=== PATIENT | female | born 1945 | race Caucasian/White ===

== ENCOUNTER 2017-11-02 13:02 | Emergency (ER) | payer MEDICARE, SELFPAY ==
[2017-11-02 13:08] VITALS: BP 143/70; PULSE 110; RESP 24; TEMP 36.7; O2SAT 90; BMI 25.0
--- NOTE | 2017-11-02 13:41 | XR_ITS ---
XR chest 2V HISTORY: ITS.REASON: Decreased apetite, confusion, baseline ORDERING PHYSICIAN: Christy Raymond MD PATIENT AGE: 72 years COMPARISON: 02/29/2008 FINDINGS: The cardiomediastinal silhouette and pulmonary vascularity are within normal limits. COPD. Patchy density is present in both lower lobes and may be due to areas of atelectasis or infiltrate. There is blunting of posterior costophrenic sulcus suggesting small effusion which may be on the right. Mild degenerative changes thoracic spine. IMPRESSION: Atelectasis or infiltrate in the lung bases with small right effusion with COPD
--- NOTE | 2017-11-02 13:45 | CT_ITS ---
CT head/brain wo con HISTORY: Altered mental status, altered level of consciousness, confusion ITS.REASON: CONFUSION ORDERING PHYSICIAN: Christy Raymond MD PATIENT AGE: 72 years COMPARISON: None TECHNIQUE: Axial images obtained without contrast. Brain and bone windows reviewed. FINDINGS: No midline shift, mass effect, intracranial hemorrhage, hydrocephalus, or extra-axial fluid collection is evident. There is atrophy with chronic ischemic gliotic change The calvarium has an unremarkable appearance. No mastoid effusion. No sinus air-fluid levels.. IMPRESSION: No acute intracranial findings. Mild atrophy with chronic ischemic gliotic change.
[2017-11-02 14:04] VITALS: BP 122/73; PULSE 109; RESP 21; O2SAT 92
--- NOTE | 2017-11-02 14:10 | HMH.EDGENADL ---
ED Disposition Clinical Impression: UTI (urinary tract infection), Cough, Neurologic complaint, functional Disposition: Home, Self-Care Condition on Discharge: Good Additional Instructions: Rx Bactrim, see your family doctor in three to five days for recheck. Prescriptions: Sulfamethoxazole/Trimethoprim [Bactrim DS tablet] 1 each PO BID #14 tab Referrals: Maya Garcia MD [Primary Care Provider] - - Critical Care Critical Care Time: No Attestation: On 11/02/17, the high probability of a clinically significant, sudden or life threatening deterioration of the following system(s) required my full and direct attention, intervention and personal management. The time I documented below is in addition to time spent performing reported procedures but includes the following listed in this critical care notation. Medical Decision Making Vital Signs: 11/02/17 13:08 11/02/17 14:04 11/02/17 15:00 Temperature 98.0 F Temperature Source Oral Pulse Rate [Right Radial] 110 H 109 H 82 Respiratory Rate 24 21 22 Blood Pressure [Right Arm] 143/70 122/73 128/77 Blood Pressure Mean [Right Arm] 94 89 94 Blood Pressure Source [Right Arm] Automatic Cuff Automatic Cuff Automatic Cuff Blood Pressure Position [Right Arm] Sitting Sitting Sitting 02 Sat by Pulse Oximetry 90 L 92 L 99 Oxygen Delivery Method Room Air Room Air Room Air - Lab Data Lab results reviewed: Yes: I reviewed the patient's lab results. Lab Results 11/02/17 13:41: Urine Color Yellow, Urine Appearance Cloudy, Urine pH 6.0, Ur Specific [place] 1.025, Urine Protein 1+, Urine Glucose (UA) Negative, Urine Ketones 3+, Urine Blood Trace-l, Urine Nitrate Negative, Urine Bilirubin 2+ A, Urine Urobilinogen 0.2, Ur Leukocyte Esterase 2+ A, Urine RBC 5-10, Urine WBC 10-20, Ur Squamous Epith Cells 5-10, Amorphous Sediment Trace, Urine Bacteria 1+ 11/02/17 14:50: WBC 11.2 H, RBC 4.59, Hgb 14.0, Hct 43.4, MCV 94.7, MCH 30.6, MCHC 32.3, RDW 12.3, Plt Count 226, MPV 7.9, Neut % (Auto) 83.0 H, Lymph % (Auto) 10.4, [place] % (Auto) 5.6, Eos % (Auto) 0.7, Baso % (Auto) 0.3, Neut # (Auto) 9.3 H, Lymph # (Auto) 1.2, [place] # (Auto) 0.6, Eos # (Auto) 0.1, Baso # (Auto) 0.0 11/02/17 14:50: Sodium 140, Potassium 4.4, Chloride 102, Carbon Dioxide 30, Anion Gap 12.4, BUN 17, Creatinine 0.96, Estimated Creat Clear 55, Estimated GFR 57 L, Est GFR ( Amer) 69, Glucose 109 H, Calcium 9.1, Total Bilirubin 0.5, AST 27, ALT 30, Alkaline Phosphatase 77, Total Creatine Kinase 37, CK-MB (CK-2) 0.8, CK-MB (CK-2) Rel Index 2.2, Troponin I < 0.02, Total Protein 7.3, Albumin 3.5, Globulin 3.8 H, Albumin/Globulin Ratio 0.9 L, TSH 1.04 Result diagrams: 11/02/17 14:50 11/02/17 14:50 Orders (Tests/Meds): ORDERS Category Date Time Status Urine Culture Stat Micro 11/02/17 13:41 Received - Radiology Data #1 Image(s): Chest, Shoulder Image Reviewed: Yes I reviewed the patient's radiology results Preliminary Findings: Normal/NAD, No Infiltrates Seen, Normal Lung Inflation Ciar[place], Normal Heart Size possible atelectasis at base - CT Data CT Scan: Head Time Received: 15:[address] Reviewed: Yes: I have reviewed the patient's CT results Preliminary Findings: Normal/NAD (Feet, negative acute.) - ECG Data Tracing #1 I reviewed this ECG and interpreted as documented below: His tachycardia rate of 109. Negative ectopy. No ischemic changes. ECG initial impression date: 11/02/17 ECG initial impression time: 14:00 ECG normal with no acute: arrhythmias, ischemia, conduction abnormalities, chamber hypertrophy - Luke Inquiry Pt receiving controlled substance: No General Adult HPI - General Chief complaint: Anxiety Stated complaint: can't eat Time Seen by Provider: 11/02/17 13:50 Mode of Arrival: Ambulatory Limitations: No Limitations Description of Symptoms (Recalled from ER Triage Doc. by RN): Patient presents today stating, I can't eat, I can't sleep. I keep forgetting things like wh
--- NOTE | 2017-11-02 14:16 | ED_ITS ---
ED Disposition Clinical Impression: UTI (urinary tract infection), Cough, Neurologic complaint, functional Disposition: Home, Self-Care Condition on Discharge: Good Additional Instructions: Rx Bactrim, see your family doctor in three to five days for recheck. Prescriptions: Sulfamethoxazole/Trimethoprim [Bactrim DS tablet] 1 each PO BID #14 tab Referrals: Maya Garcia MD [Primary Care Provider] - - Critical Care Critical Care Time: No Attestation: On 11/02/17, the high probability of a clinically significant, sudden or life threatening deterioration of the following system(s) required my full and direct attention, intervention and personal management. The time I documented below is in addition to time spent performing reported procedures but includes the following listed in this critical care notation. Medical Decision Making Vital Signs: 11/02/17 13:08 11/02/17 14:04 11/02/17 15:00 Temperature 98.0 F Temperature Source Oral Pulse Rate [Right Radial] 110 H 109 H 82 Respiratory Rate 24 21 22 Blood Pressure [Right Arm] 143/70 122/73 128/77 Blood Pressure Mean [Right Arm] 94 89 94 Blood Pressure Source [Right Arm] Automatic Cuff Automatic Cuff Automatic Cuff Blood Pressure Position [Right Arm] Sitting Sitting Sitting 02 Sat by Pulse Oximetry 90 L 92 L 99 Oxygen Delivery Method Room Air Room Air Room Air - Lab Data Lab results reviewed: Yes: I reviewed the patient's lab results. Lab Results 11/02/17 13:41: Urine Color Yellow, Urine Appearance Cloudy, Urine pH 6.0, Ur Specific [place] 1.025, Urine Protein 1+, Urine Glucose (UA) Negative, Urine Ketones 3+, Urine Blood Trace-l, Urine Nitrate Negative, Urine Bilirubin 2+ A, Urine Urobilinogen 0.2, Ur Leukocyte Esterase 2+ A, Urine RBC 5-10, Urine WBC 10 -20, Ur Squamous Epith Cells 5-10, Amorphous Sediment Trace, Urine Bacteria 1+ 11/02/17 14:50: WBC 11.2 H, RBC 4.59, Hgb 14.0, Hct 43.4, MCV 94.7, MCH 30.6, MCHC 32.3, RDW 12.3, Plt Count 226, MPV 7.9, Neut % (Auto) 83.0 H, Lymph % (Auto ) 10.4, [place] % (Auto) 5.6, Eos % (Auto) 0.7, Baso % (Auto) 0.3, Neut # (Auto) 9.3 H, Lymph # (Auto) 1.2, [place] # (Auto) 0.6, Eos # (Auto) 0.1, Baso # (Auto) 0.0 11/02/17 14:50: Sodium 140, Potassium 4.4, Chloride 102, Carbon Dioxide 30, Anion Gap 12.4, BUN 17, Creatinine 0.96, Estimated Creat Clear 55, Estimated GFR 57 L, Est GFR ( Amer) 69, Glucose 109 H, Calcium 9.1, Total Bilirubin 0.5, AST 27, ALT 30, Alkaline Phosphatase 77, Total Creatine Kinase 37 , CK-MB (CK-2) 0.8, CK-MB (CK-2) Rel Index 2.2, Troponin I < 0.02, Total Protein 7.3, Albumin 3.5, Globulin 3.8 H, Albumin/Globulin Ratio 0.9 L, TSH 1.04 Result diagrams: 11/02/17 14:50 11/02/17 14:50 Orders (Tests/Meds): ORDERS Category Date Time Status Urine Culture Stat Micro 11/02/17 13:41 Received - Radiology Data #1 Image(s): Chest, Shoulder Image Reviewed: Yes I reviewed the patient's radiology results Preliminary Findings: Normal/NAD, No Infiltrates Seen, Normal Lung Inflation Ciaran , Normal Heart Size possible atelectasis at base - CT Data CT Scan: Head Time Received: 15:[address] Reviewed: Yes: I have reviewed the patient's CT results Preliminary Findings: Normal/NAD (Feet, negative acute.) - ECG Data Tracing #1 I reviewed this ECG and interpreted as documented below: His tachycardia rate of 109. Negative ectopy. No ischemic changes. ECG initial impression date: 11/02/17 ECG initial impress
[2017-11-02 14:58] LABS: Basophils % 0.3 % (0.1-2.0); Eosinophils # 0.1 K/mm3 (0.0-0.4); Eosinophils % 0.7 % (0.1-12.0); Hematocrit 43.4 % (37.0-47.0); Lymphocytes # 1.2 K/mm3 (0.7-4.5); Lymphocytes % 10.4 K/mm3 (10-50); Mean Corpuscular HGB Conc 32.3 g/dL (31.8-35.4); Mean Corpuscular Hemoglobin 30.6 pg (27.0-31.2); Mean Corpuscular Volume 94.7 fl (81-99); Mean Platelet Volume 7.9 fl (7.4-10.4); Monocytes # 0.6 K/mm3 (0.1-1.0); Monocytes % 5.6 % (1.7-9.3); Neutrophils # 9.3 K/mm3 (1.8-7.8); Platelet Count 226 K/mm3 (142-424); Red Blood Count 4.59 M/mm3 (4.20-5.40); Red Cell Distribution Width 12.3 % (11.5-17.5); White Blood Count 11.2 K/mm3 (4.8-10.8)
[2017-11-02 15:00] VITALS: BP 128/77; PULSE 82; RESP 22; O2SAT 99
[2017-11-02 15:25] LABS: Alanine Aminotransferase 30 U/L (12-78); Albumin Level 3.5 gm/dL (3.4-5.0); Albumin/Globulin Ratio 0.9 (1.1-1.8); Alkaline Phosphatase 77 U/L (46-116); Anion Gap 12.4 mEq/L (5-15); Aspartate Amino Transferase 27 U/L (15-37); Bilirubin,Total 0.5 mg/dL (0.2-1.0); Blood Urea Nitrogen 17 mg/dL (7-18); CKMB Relative Index 2.2 U/L (0-4.0); Calcium 9.1 mg/dL (8.5-10.1); Carbon Dioxide 30 mmol/L (21.0-32.0); Chloride 102 mmol/L (98-107); Creatine Kinase 37 U/L (26-192); Creatine Kinase MB 0.8 mg/ml (0.0-3.6); Creatinine Clearance Estimated 55 mL/min (0-300); Creatinine,Serum 0.96 mg/dL (0.55-1.02); Estimated Glomerular Filt Rate 57 ml/min (>60); GFR (African American) 69 ML/MIN (>60); Globulin 3.8 gm/dl (1.3-3.2); Glucose 109 mg/dL (74-106); Potassium 4.4 mmoL/L (3.5-5.1); Sodium 140 mmol/L (136-145); Thyroid Stimulating Hormone 1.04 uIU/ml (0.358-3.740); Total Protein,Serum 7.3 gm/dL (6.4-8.2); Troponin I < 0.02 ng/ml (0.00-0.06)
[2017-11-02 15:30] LABS: Microscopic, Urine URINE MICROSCOPIC (MICROSCOPIC)
[2017-11-02 15:35] LABS: Appearance,Urine CLOUDY (Clear); Blood, Urine TRACE-L (Negative); Color,Urine YELLOW (Yellow); Glucose,Urine (UA) Negative (Negative); Ketones,Urine 3+ (Negative); Leukocyte Esterase,Urine 2+ (Negative); Nitrate,Urine Negative (Negative); Protein,Urine 1+ (Negative); Specific Gravity, Urine 1.025 (1.005-1.030); Urobilinogen,Urine 0.2 EU/dl (0.2)
[2017-11-02 15:48] LABS: Bilirubin,Urine 2+ (Negative)
[2017-11-02 15:57] LABS: Amorphous Sediment,Urine Trace /lpf; Bacteria,Urine 1+ /lpf
[2017-11-02 16:11] VITALS: BP 135/90; PULSE 103; RESP 20; TEMP 36.7; O2SAT 91
== END 2017-11-02 16:18 | disposition home or self-care (01) ==
PROVIDERS: Emergency Provider Emergency Medicine; Family Provider Family Medicine; PCP Family Medicine
DX: R68.89 Other general symptoms and signs (principal); N39.0 Urinary tract infection, site not specified; R05 Cough; Z79.899 Other long term (current) drug therapy; Z87.891 Personal history of nicotine dependence
CPT/HCPCS: 70450; 71046; 80053; 81001; 82550; 82553; 84443; 84484; 85025; 87086; 93005; 93041; 99284

== ENCOUNTER → 2019-04-11 09:54 | Outpatient (CLI) | payer MEDICARE, SELFPAY ==
--- NOTE | 2019-04-11 10:01 | XR_ITS ---
XR chest 2V HISTORY: ITS.REASON: COPD cough, smoker ORDERING PHYSICIAN: Maya Garcia MD PATIENT AGE: 73 years COMPARISON: 11/02/2017 FINDINGS: Normal heart size. There is hyperinflation with attenuation of the peripheral pulmonary vessels consistent with COPD. There are chronic changes in the lower lobes within the lingula and right middle lobe. No lobar consolidation or collapse. There is mild thoracic kyphosis unchanged. IMPRESSION: COPD with chronic changes
== END ==
PROVIDERS: PCP Family Medicine; Visit Provider Family Medicine
DX: J44.9 Chronic obstructive pulmonary disease, unspecified (principal)
CPT/HCPCS: 71046

== ENCOUNTER → 2021-05-06 13:42 | Outpatient (CLI) | payer MEDICARE, SELFPAY ==
--- NOTE | 2021-05-06 13:52 | XR_ITS ---
PROCEDURE: XR HIP RT 2-3V W/PELVIS CLINICAL INDICATION: RT HIP PAIN COMPARISON: CR HIP2R HIP-2 VIEWS-RT from 01/15/2013 CR HIP2R HIP-2 VIEWS-RT from 01/30/2013 CR HIP2R HIP-2 VIEWS-RT from 04/13/2013 CR HIP2R HIP-2 VIEWS-RT from 09/18/2013 FINDINGS: Total right hip prosthesis is present. There is good position. No acute fracture or dislocation. Well-circumscribed calcific density is present superior to the right iliac crest and may be due to injection granuloma. IMPRESSION: Right hip prosthesis in place. No acute finding Dictated by: Guille Ga MD 05/06/2021 14:59 Guille Ga MD in OV 05/06/2021 14:59
== END ==
PROVIDERS: PCP Family Medicine; Visit Provider Family Medicine
DX: M25.551 Pain in right hip (principal)
CPT/HCPCS: 73502

== ENCOUNTER 2021-11-11 10:06 | Inpatient (IN) | payer MEDICARE, SELFPAY ==
[2021-11-11] VITALS (11 sets, daily range): BP systolic 111–165; BP diastolic 54–89; PULSE 78–106; RESP 16–28; TEMP 36.6–37.3; O2SAT 3–99; BMI 34.5; BMI 31.1; BMI 19.8
--- NOTE | 2021-11-11 10:09 | XR_ITS ---
FINAL REPORT CLINICAL HISTORY: right hip pain FINDINGS: Right hip with pelvis. There has been right hip arthroplasty. There is no acute fracture or dislocation. There are mild degenerative changes of the left hip. There are no soft tissue abnormalities. IMPRESSION: Postoperative and degenerative changes. Reviewed, Interpreted and Dictated by Lior Collado III, MD Transcribed by Nelson Tirado Authenticated by Lior Collado III, MD on 11/11/2021 12:27:13 PM [facility]
--- NOTE | 2021-11-11 10:09 | XR_ITS ---
FINAL REPORT CLINICAL HISTORY: cough COMPARISON: November 02, 2017 FINDINGS: The heart size is normal. The mediastinum is normal. The lungs are hyperinflated consistent with COPD. There are mild bibasilar opacities. There are no pleural effusions. There is no pneumothorax. There is no osseous abnormality. IMPRESSION: Mild bibasilar opacities could represent atelectasis or scarring. Reviewed, Interpreted and Dictated by Lior Collado III, MD Transcribed by Nelson Tirado Authenticated by Lior Collado III, MD on 11/11/2021 12:27:16 PM [facility]
--- NOTE | 2021-11-11 10:12 | HMH.EDGENADL ---
ED Disposition Clinical Impression: COVID-19, Hypoxemia Disposition: Admitted as Observation Condition on Discharge: Good Referrals: Maya Garcia MD [Primary Care Provider] - - Critical Care Critical Care Time: No Attestation: On , the high probability of a clinically significant, sudden or life threatening deterioration of the following system(s) required my full and direct attention, intervention and personal management. The time I documented below is in addition to time spent performing reported procedures but includes the following listed in this critical care notation. Medical Decision Making - Medical Records Medical records reviewed: Yes: I reviewed the patient's medical records. - Luke Inquiry Pt receiving controlled substance: No - Lab Data Lab Results 11/11/21 10:10: WBC 7.7, RBC 4.37, Hgb 13.6, Hct 43.6, MCV 99.8 H, MCH 31.1, MCHC 31.2 L, RDW 13.2, Plt Count 216, MPV 9.3, Neut % (Auto) 77.4, Lymph % (Auto) 11.5, [place] % (Auto) 9.0, Eos % (Auto) 0.5, Baso % (Auto) 1.6, Neut # (Auto) 5.9, Lymph # (Auto) 0.9, [place] # (Auto) 0.7, Eos # (Auto) 0.0, Baso # (Auto) 0.1 11/11/21 10:10: Sodium 134 L, Potassium 4.5, Chloride 98, Carbon Dioxide 28, Anion Gap 12.5, BUN 19 H, Creatinine 0.80, Estimated Creat Clear 59, Estimated GFR 70, Est GFR ( Amer) 85, Glucose 94, Calcium 8.4, Total Bilirubin 0.4, AST 58 H, ALT 24, Alkaline Phosphatase 76, Total Protein 6.7, Albumin 3.8, Globulin 2.9, Albumin/Globulin Ratio 1.3 11/11/21 10:25: SARS-CoV-2 (PCR) Detected A, Influenza A Untype (PCR) Not detected, Influenza Type B (PCR) Not detected 11/11/21 10:43: Lactate 0.7 Result diagrams: 11/11/21 10:10 11/11/21 10:10 Orders (Tests/Meds): ED MEDICATIONS Discontinued Medications Generic Name Dose Route Start Last Admin Trade Name Freq PRN Reason Stop Dose Admin Dexamethasone Sodium Phosphate 8 mg 11/11/21 11:24 11/11/21 11:37 Dexamethasone 4mg/Ml 1ml Vial IV 11/11/21 11:25 8 mg ONCE ONE Administration Sodium Chloride 1,000 mls @ 999 mls/hr 11/11/21 10:15 11/11/21 10:31 Sod Chlor 0.9% 1000ml Bag IV 11/11/21 11:15 999 mls/hr .Q1H1M KALINA Administration Azithromycin 500 mg/ Sodium 250 mls @ 250 mls/hr 11/11/21 11:30 11/11/21 11:37 Chloride IV 11/11/21 11:31 250 mls/hr ONCE ONE Administration ORDERS Category Date Time Status Urinalysis and Microscopic Stat Lab 11/11/21 10:09 Ordered Blood Culture Stat Micro 11/11/21 10:43 Received EKG Request [ECG Request by /Nse] Stat Y 11/11/21 10:14 Ordered Medical Decision Narrative: ekg by me sinus 103, la, no st elev General Adult HPI - General Chief complaint: PAIN Stated complaint: pain Time Seen by Provider: 11/11/21 10:12 - History of Present Illness HPI narrative: h/o dementi family call c/o cough and congestion and rt hip pain gradual worsening ems reports o2 sat 80's ra Onset (ago): day(s) Radiation: non-radiation Severity: moderate Consistency: constant Associated symptoms: cough, shortness of breath, weakness - Related Data Home Medications Medication Instructions Recorded Confirmed lisinopriL [Lisinopril 10mg Tab] 10 mg PO DAILY 11/02/17 11/02/17 Allergies Allergy/AdvReac Type Severity Reaction Status Date / Time No Known Allergies Allergy Verified 11/02/17 13:19 [facility] History - Hepatitis A Screen Attestation statement:: This patient has been screened for Hepatitis A risk factors. - Social History Smoking Status: Former smoker Alcohol Intake: never ROS Obtained: Yes All systems reviewed & no additional complaints Physical Exam - General General appearance: alert, in no apparent distress - Head Head exam: atraumatic, normocephalic - Eye Eye exam: Present: normal appearance, PERRL, EOMI - ENT ENT exam: Present: normal exam, normal oropharynx, mucous membranes moist - Neck Neck exam: Present: normal inspection, full ROM, trachea midline - Chest Chest inspe
--- NOTE | 2021-11-11 10:14 | ECG_ITS ---
APPROVED REPORT Exam: Resting ECG HR:103 bpm ECG Measurements Heart Rate 103 AXES NE 148 P 74 QRSd 93 QRS -65 QT 350 T 66 QTc 410 Conclusion SINUS TACHYCARDIA LEFT AXIS DEVIATION [QRS AXIS < -30] INCOMPLETE RIGHT BUNDLE BRANCH BLOCK Old late r wave progression ABNORMAL ECG UNCONFIRMED REPORT Electronically signed by : Tommy Martinez MD 11/12/2021 18:51:48
[2021-11-11 10:24] LABS: Basophils # 0.1 K/mm3 (0-0.2); Basophils % 1.6 % (0.1-2.0); Eosinophils % 0.5 % (0.1-12.0); Hematocrit 43.6 % (37.0-47.0); Hemoglobin 13.6 g/dL (12.2-16.2); Lymphocytes # 0.9 K/mm3 (0.7-4.5); Lymphocytes % 11.5 % (10-50); Mean Corpuscular HGB Conc 31.2 g/dL (31.8-35.4); Mean Corpuscular Hemoglobin 31.1 pg (27.0-31.2); Mean Corpuscular Volume 99.8 fl (81-99); Mean Platelet Volume 9.3 fl (7.4-10.4); Monocytes # 0.7 K/mm3 (0.1-1.0); Neutrophils # 5.9 K/mm3 (1.8-7.8); Neutrophils % 77.4 % (37.0-80.0); Platelet Count 216 K/mm3 (142-424); Red Blood Count 4.37 M/mm3 (4.20-5.40); Red Cell Distribution Width 13.2 % (11.5-17.5); White Blood Count 7.7 K/mm3 (4.8-10.8)
[2021-11-11 10:32] LABS: Chloride 98 mmol/L (98-107); Potassium 4.5 mmoL/L (3.5-5.1); Sodium 134 mmol/L (136-145)
[2021-11-11 10:35] LABS: Alanine Aminotransferase 24 U/L (12-78); Albumin Level 3.8 g/dl (3.5-5.0); Albumin/Globulin Ratio 1.3 (1.1-1.8); Alkaline Phosphatase 76 U/L (38-126); Anion Gap 12.5 mEq/L (5-15); Aspartate Amino Transferase 58 U/L (14-36); Bilirubin,Total 0.4 mg/dl (0.2-1.3); Blood Urea Nitrogen 19 mg/dl (7-17); Carbon Dioxide 28 mmol/L (22.0-30.0); Creatinine Clearance Estimated 59 mL/min (50-200); Estimated Glomerular Filt Rate 70 ml/min (>60); GFR (African American) 85 ML/MIN (>60); Globulin 2.9 g/dL (1.3-3.2); Total Protein,Serum 6.7 g/dl (6.3-8.2)
[2021-11-11 10:36] LABS: Calcium 8.4 mg/dl (8.4-10.2); Glucose 94 mg/dl (74-100)
[2021-11-11 10:39] LABS: Influenza A, PCR Not Detected (NotDetected); Influenza B, PCR Not Detected (NotDetected)
--- NOTE | 2021-11-11 11:17 | PC.NURSE ---
O2 REMOVED PER MD O2 SATS DROPPED TO 84% O2 REAPPLIED O2 SATS BACK UP TO 95%
[2021-11-11 11:18] LABS: Coronavirus 19, PCR Detected (NotDetected)
[2021-11-11 11:34] LABS: Lactic Acid 0.7 mmol/L (0.7-2.1)
--- NOTE | 2021-11-11 12:00 | PC.NURSE ---
pt resting in bed offers no c/o at present
--- NOTE | 2021-11-11 12:17 | PC.NURSE ---
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
--- NOTE | 2021-11-11 13:04 | PC.NURSE ---
used external med history for patient med rec. will go over with patient on admission
--- NOTE | 2021-11-11 13:15 | HMH.PHAINT ---
MEDICATION RECONCILIATION COMPLETED ON PATIENT USING EXTERNAL FILL HISTORY FROM PHARMACY. -SYLVIA LUNDBERG, EDILD
[2021-11-11 13:19] LABS: Microscopic, Urine URINE MICROSCOPIC (MICROSCOPIC)
[2021-11-11 13:58] LABS: Appearance,Urine CLEAR (Clear); Blood, Urine TRACE-I (Negative); Color,Urine YELLOW (Yellow); Glucose,Urine (UA) Negative (Negative); Ketones,Urine 2+ (Negative); Leukocyte Esterase,Urine 2+ (Negative); Nitrate,Urine Negative (Negative); Protein,Urine Negative (Negative); Specific Gravity, Urine >= 1.030 (1.005-1.030); Urobilinogen,Urine 0.2 EU/dl (0.2)
[2021-11-11 14:17] LABS: Bilirubin,Urine 1+ (Negative); Squamous Epithelial Cell,Urine Occasional #/hpf (0-5)
[2021-11-11 14:18] LABS: Bacteria,Urine 2+ /lpf
--- NOTE | 2021-11-11 14:49 | HMH.PHAVTE ---
[facility] Pharmacy VTE Monitoring - Patient Demographics Admission date: 11/11/21 Report Date: 11/11/21 Time: 14:49 Allergies/Adverse Reactions: Patient Allergies No Known Allergies Allergy (Verified 11/02/17 13:19) Height: 1.57 m Weight: 77.111 kg Patient Problems: Current Active Problems COVID-19 (Acute) Hypoxemia (Acute) - VTE Risk Labs: VTE Related Lab Results Hgb 13.6 g/dL (12.2-16.2) 11/11/21 10:10 Hct 43.6 % (37.0-47.0) 11/11/21 10:10 Plt Count 216 K/mm3 (142-424) 11/11/21 10:10 BUN 19 mg/dl (7-17) H 11/11/21 10:10 Creatinine 0.80 mg/dl (0.52-1.04) 11/11/21 10:10 Estimated Creat Clear 59 mL/min (50-200) 11/11/21 10:10 - Prophylaxis VTE Prophylaxis Ordered?: Yes Types of VTE Prophylaxis: TEDS Knee High, Pharmacological Location of Applied Device: Bilateral Lower Extremeties Pharmacologic Type: Enoxaparin
--- NOTE | 2021-11-11 18:08 | HMH.HP ---
*Admission Date: 11/11/21 *Chief complaint: cough, hip pain *History of present illness: 76 year old female present to ER via EMS with cough, chest congestion, and right hip pain. Eval in ther ER revealed hypoxian and positive covid19 test. Hip imaging unremarkable. Patient has been vaccinated with J&J with no booster. She has been a smoker for 60 years. No oxygen use at home. Patient is unclear on length of illness. [facility] History I have reviewed the patient's past medical history: Yes Medical History: Reports:: Chronic Obstructive Pulmonary Disease (COPD), Dementia, Hypertension Denies:: Diabetes Mellitus Type 1, Diabetes Mellitus Type 2 *Have you ever received a pneumonia vaccine?: No *Have you received a flu vaccine this season?: No - *Social History Smoking Status: Current every day smoker Tobacco Type: cigarettes # Packs/Day (cigarettes): 1 Alcohol Intake: never *Occupational Status:: retired Housing: house Household Members: family *Travel in the last 8 weeks: None Family Hx:: Unable to obtain Review of Systems - Review of Systems Review of systems:: pertinent systems reviewed and negative unless documented below Meds Home Medications Medication Instructions Recorded Confirmed Type lisinopriL [Lisinopril 10mg Tab] 10 mg PO DAILY 11/02/17 11/11/21 History Doxepin HCl [Sinequan 25mg capsule] 25 mg PO HS 11/11/21 11/11/21 History Memantine HCl [Memantine 10mg 10 mg PO BID 11/11/21 11/11/21 History Tablet] Temazepam [Restoril 30mg Capsule] 30 mg PO HSP PRN 11/11/21 11/11/21 History Allergies Allergy/AdvReac Type Severity Reaction Status Date / Time No Known Allergies Allergy Verified 11/02/17 13:19 Exam Vital signs and Labs for Last 24 Hours: Temp Pulse Resp BP Pulse Ox 99.2 F 103 H 26 H 111/86 3 L 11/11/21 16:00 11/11/21 16:00 11/11/21 16:00 11/11/21 16:00 11/11/21 16:00 Laboratory Results - last 24 hr 11/11/21 10:10: WBC 7.7, RBC 4.37, Hgb 13.6, Hct 43.6, MCV 99.8 H, MCH 31.1, MCHC 31.2 L, RDW 13.2, Plt Count 216, MPV 9.3, Neut % (Auto) 77.4, Lymph % (Auto) 11.5, [place] % (Auto) 9.0, Eos % (Auto) 0.5, Baso % (Auto) 1.6, Neut # (Auto) 5.9, Lymph # (Auto) 0.9, [place] # (Auto) 0.7, Eos # (Auto) 0.0, Baso # (Auto) 0.1 11/11/21 10:10: Sodium 134 L, Potassium 4.5, Chloride 98, Carbon Dioxide 28, Anion Gap 12.5, BUN 19 H, Creatinine 0.80, Estimated Creat Clear 59, Estimated GFR 70, Est GFR ( Amer) 85, Glucose 94, Calcium 8.4, Total Bilirubin 0.4, AST 58 H, ALT 24, Alkaline Phosphatase 76, Total Protein 6.7, Albumin 3.8, Globulin 2.9, Albumin/Globulin Ratio 1.3 11/11/21 10:25: SARS-CoV-2 (PCR) Detected A, Influenza A Untype (PCR) Not detected, Influenza Type B (PCR) Not detected 11/11/21 10:43: Lactate 0.7 11/11/21 13:05: Urine Color Yellow, Urine Appearance Clear, Urine pH 6.0, Ur Specific [place] >= 1.030, Urine Protein Negative, Urine Glucose (UA) Negative, Urine Ketones 2+, Urine Blood Trace-i, Urine Nitrate Negative, Urine Bilirubin 1+ A, Urine Urobilinogen 0.2, Ur Leukocyte Esterase 2+ A, Urine RBC 3-5, Urine WBC 5-10, Ur Squamous Epith Cells Occasional, Urine Bacteria 2+ I & O for Last 24 hours: Intake & Output 11/09/21 11/10/21 11/11/21 11/12/21 11:59 11:59 11:59 11:59 Weight 170 lb 146 lb 8 oz - Constitutional no acute distress - *Routine HEENT Exam Head: Present: normocephalic Eye: Present: EOMI, PERRL ENT: Present: mucous membranes moist - *Routine Neck Exam Present: supple. Absent: lymphadenopathy - *Routine Respiratory Exam Present: decreased breath sounds, distant breath sounds - *Routine Cardiovascular Exam Present: RRR - *Routine Abdominal Exam Present: soft, normoactive bowel sounds. Absent: tenderness - *Routine Rectal Exam Rectal:: deferred - *Routine Genitalia Exam Genitalia:: deferred - *Routine Extremities Exam Absent: cyanosis, clubbing, edema - *Routine Skin Exam Present: warm. Absent: rash - *Routine Neurological Exam
[2021-11-12] VITALS (8 sets, daily range): BP systolic 101–159; BP diastolic 54–78; PULSE 78–106; RESP 18–20; TEMP 36.4–36.9; O2SAT 89–98
--- NOTE | 2021-11-12 05:33 | PC.NURSE ---
Pt rested well this shift. Pt has been pleasantly confused, can state name and . Pt is on 2L NC with O2 sats >90%. X1 assist to BSC. Pt voiced no c/o of pain, N/V t/o shift. Bed alarm on for safety.
[2021-11-12 06:22] LABS: Basophils % 0.6 % (0.1-2.0); Hematocrit 40.3 % (37.0-47.0); Hemoglobin 12.4 g/dL (12.2-16.2); Lymphocytes # 0.9 K/mm3 (0.7-4.5); Lymphocytes % 13.6 % (10-50); Mean Corpuscular HGB Conc 30.8 g/dL (31.8-35.4); Mean Corpuscular Hemoglobin 30.7 pg (27.0-31.2); Mean Corpuscular Volume 99.7 fl (81-99); Mean Platelet Volume 8.7 fl (7.4-10.4); Monocytes # 0.6 K/mm3 (0.1-1.0); Monocytes % 8.2 % (1.7-9.3); Neutrophils # 5.3 K/mm3 (1.8-7.8); Neutrophils % 77.6 % (37.0-80.0); Platelet Count 209 K/mm3 (142-424); Red Blood Count 4.04 M/mm3 (4.20-5.40); White Blood Count 6.9 K/mm3 (4.8-10.8)
[2021-11-12 06:23] LABS: Chloride 107 mmol/L (98-107); Sodium 137 mmol/L (136-145)
[2021-11-12 06:24] LABS: Potassium 4.5 mmoL/L (3.5-5.1)
[2021-11-12 06:26] LABS: Alanine Aminotransferase 17 U/L (12-78); Anion Gap 6.5 mEq/L (5-15); Aspartate Amino Transferase 39 U/L (14-36); Blood Urea Nitrogen 19 mg/dl (7-17); Carbon Dioxide 28 mmol/L (22.0-30.0); Creatinine Clearance Estimated 51 mL/min (50-200); Estimated Glomerular Filt Rate 82 ml/min (>60); GFR (African American) 99 ML/MIN (>60)
[2021-11-12 06:27] LABS: Albumin Level 3.1 g/dl (3.5-5.0); Albumin/Globulin Ratio 1.2 (1.1-1.8); Alkaline Phosphatase 61 U/L (38-126); Bilirubin,Total 0.2 mg/dl (0.2-1.3); Calcium 7.2 mg/dl (8.4-10.2); Globulin 2.6 g/dL (1.3-3.2); Glucose 105 mg/dl (74-100); Total Protein,Serum 5.7 g/dl (6.3-8.2)
[2021-11-12 06:32] LABS: C-Reactive Protein 51.3 mg/L (0-4)
--- NOTE | 2021-11-12 07:50 | HMH.ACPN2 ---
Internal Medicine - PN: Errol *Date: 11/12/21 *Time: 07:50 Interval history: No acute events overnight. Patient sats have maintained in the mid to high 90s on 2 L of supplemental oxygen. Exam Vital signs and Labs for Last 24 Hours: Temp Pulse Resp BP Pulse Ox 97.9 F 78 18 122/71 95 11/12/21 04:00 11/12/21 04:00 11/12/21 04:00 11/12/21 04:00 11/12/21 04:00 Laboratory Results - last 24 hr 11/11/21 10:10: WBC 7.7, RBC 4.37, Hgb 13.6, Hct 43.6, MCV 99.8 H, MCH 31.1, MCHC 31.2 L, RDW 13.2, Plt Count 216, MPV 9.3, Neut % (Auto) 77.4, Lymph % (Auto) 11.5, [place] % (Auto) 9.0, Eos % (Auto) 0.5, Baso % (Auto) 1.6, Neut # (Auto) 5.9, Lymph # (Auto) 0.9, [place] # (Auto) 0.7, Eos # (Auto) 0.0, Baso # (Auto) 0.1 11/11/21 10:10: Sodium 134 L, Potassium 4.5, Chloride 98, Carbon Dioxide 28, Anion Gap 12.5, BUN 19 H, Creatinine 0.80, Estimated Creat Clear 59, Estimated GFR 70, Est GFR ( Amer) 85, Glucose 94, Calcium 8.4, Total Bilirubin 0.4, AST 58 H, ALT 24, Alkaline Phosphatase 76, Total Protein 6.7, Albumin 3.8, Globulin 2.9, Albumin/Globulin Ratio 1.3 11/11/21 10:25: SARS-CoV-2 (PCR) Detected A, Influenza A Untype (PCR) Not detected, Influenza Type B (PCR) Not detected 11/11/21 10:43: Lactate 0.7 11/11/21 13:05: Urine Color Yellow, Urine Appearance Clear, Urine pH 6.0, Ur Specific Dexter >= 1.030, Urine Protein Negative, Urine Glucose (UA) Negative, Urine Ketones 2+, Urine Blood Trace-i, Urine Nitrate Negative, Urine Bilirubin 1+ A, Urine Urobilinogen 0.2, Ur Leukocyte Esterase 2+ A, Urine RBC 3-5, Urine WBC 5-10, Ur Squamous Epith Cells Occasional, Urine Bacteria 2+ 11/12/21 05:39: WBC 6.9, RBC 4.04 L, Hgb 12.4, Hct 40.3, MCV 99.7 H, MCH 30.7, MCHC 30.8 L, RDW 13.0, Plt Count 209, MPV 8.7, Neut % (Auto) 77.6, Lymph % (Auto) 13.6, [place] % (Auto) 8.2, Eos % (Auto) 0.0 L, Baso % (Auto) 0.6, Neut # (Auto) 5.3, Lymph # (Auto) 0.9, [place] # (Auto) 0.6, Eos # (Auto) 0.0, Baso # (Auto) 0.0 11/12/21 05:39: Sodium 137, Potassium 4.5, Chloride 107, Carbon Dioxide 28, Anion Gap 6.5, BUN 19 H, Creatinine 0.70, Estimated Creat Clear 51, Estimated GFR 82, Est GFR ( Amer) 99, Glucose 105 H, Calcium 7.2 L, Total Bilirubin 0.2, AST 39 H D, ALT 17 D, Alkaline Phosphatase 61, C-Reactive Protein 51.3 H, Total Protein 5.7 L, Albumin 3.1 L D, Globulin 2.6, Albumin/Globulin Ratio 1.2 I & O for Last 24 hours: Intake & Output 11/09/21 11/10/21 11/11/21 11/12/21 11:59 11:59 11:59 11:59 Intake Total 60 / 60 Balance 60 / Weight 170 lb 147 lb 8 oz - Constitutional no acute distress - *Routine Respiratory Exam Present: decreased breath sounds, distant breath sounds - *Routine Cardiovascular Exam Present: RRR - *Routine Abdominal Exam Present: soft, normoactive bowel sounds. Absent: tenderness Assessment and Plan (1) Acute respiratory failure Status: Acute Category: Medical Code(s): J96.00 - Acute respiratory failure, unspecified whether with hypoxia or hypercapnia (2) Lower resp. tract infection Status: Acute Category: Medical Code(s): J22 - Unspecified acute lower respiratory infection (3) Dementia Status: Acute Category: Medical Code(s): F03.90 - Unspecified dementia without behavioral disturbance (4) COPD (chronic obstructive pulmonary disease) Status: Acute Category: Medical Code(s): J44.9 - Chronic obstructive pulmonary disease, unspecified (5) Hypertension Status: Acute Category: Medical Code(s): I10 - Essential (primary) hypertension (6) COVID-19 Status: Acute Category: Medical Code(s): U07.1 - COVID-19 (7) Urinary tract infection Status: Suspected Category: Medical Code(s): N39.0 - Urinary tract infection, site not specified - Assessment and plan all Dx Assessment and Plan for all problems:: 1. Continue Remdesivir and dexamethasone for patient's COVID 19 lower respiratory tract infection with acute respiratory failure 2. Rocephin will be started for susp
--- NOTE | 2021-11-12 17:09 | PC.NURSE ---
PT HAS BEEN CONFUSED THIS SHIFT. SHE HAS PULLED OUT MULTIPLE IVS. SHE IS ABLE TO ANSWER MOST QUESTIONS APPROPRIATELY, BED ALARM HAS REMAINED ON FOR SAFETY. SHE DENIES N/V/D ABD IS SOFT AND NON-TENDER. SHE HAS NOT C/O PAIN. DIET WAS ADJUSTED TO SOFT MECH CARDIAC BECAUSE SHE DID NOT HAVE HER DENTURES WITH HER. SHE IS ABLE TO TAKE PILLS WHOLE AND TOLERATES THIS LIQUIDS WELL. SHE REMAINS ON 2LNC FOR O2 SUPPORT.
[2021-11-13 04:00] VITALS: BP 148/73; PULSE 100; RESP 18; TEMP 36.6; O2SAT 96
--- NOTE | 2021-11-13 05:53 | PC.NURSE ---
Pt was confused at beginning of shift, trying to get up out of the bed multiple times. Pt rested well after she fell asleep. Pt remains on 2L NC with sats >90%. Pt voiced no c/o this shift.
[2021-11-13 06:39] LABS: Chloride 106 mmol/L (98-107)
[2021-11-13 06:40] LABS: Potassium 4.3 mmoL/L (3.5-5.1); Sodium 137 mmol/L (136-145)
[2021-11-13 06:42] LABS: Alanine Aminotransferase 18 U/L (12-78); Aspartate Amino Transferase 39 U/L (14-36); Blood Urea Nitrogen 19 mg/dl (7-17); Creatinine Clearance Estimated 51 mL/min (50-200); Estimated Glomerular Filt Rate 82 ml/min (>60); GFR (African American) 99 ML/MIN (>60)
[2021-11-13 06:43] LABS: Albumin Level 3.1 g/dl (3.5-5.0); Albumin/Globulin Ratio 1.3 (1.1-1.8); Alkaline Phosphatase 71 U/L (38-126); Anion Gap 4.3 mEq/L (5-15); Calcium 7.6 mg/dl (8.4-10.2); Carbon Dioxide 31 mmol/L (22.0-30.0); Globulin 2.4 g/dL (1.3-3.2); Glucose 117 mg/dl (74-100); Total Protein,Serum 5.5 g/dl (6.3-8.2)
[2021-11-13 06:48] LABS: Bilirubin,Total 0.1 mg/dl (0.2-1.3)
--- NOTE | 2021-11-13 07:06 | HMH.ACPN2 ---
Internal Medicine - PN: Subj *Date: 11/13/21 *Time: 07:06 Interval history: No respiratory events over the last 24 hours. Patient has had some confusion. She did sleep well after being given her nightly dose of temazepam. Patient herself has no complaints this morning. Exam Vital signs and Labs for Last 24 Hours: Temp Pulse Resp BP Pulse Ox 97.8 F 100 H 18 148/73 H 96 11/13/21 04:00 11/13/21 04:00 11/13/21 04:00 11/13/21 04:00 11/13/21 04:00 Laboratory Results - last 24 hr 11/13/21 05:23: Sodium 137, Potassium 4.3, Chloride 106, Carbon Dioxide 31 H, Anion Gap 4.3 L, BUN 19 H, Creatinine 0.70, Estimated Creat Clear 51, Estimated GFR 82, Est GFR ( Amer) 99, Glucose 117 H, Calcium 7.6 L, Total Bilirubin 0.1 L, AST 39 H, ALT 18, Alkaline Phosphatase 71, Total Protein 5.5 L, Albumin 3.1 L, Globulin 2.4, Albumin/Globulin Ratio 1.3 I & O for Last 24 hours: Intake & Output 11/10/21 11/11/21 11/12/21 11/13/21 11:59 11:59 11:59 11:59 Intake Total 60 / 60 488 / 488 Balance 60 / 60 488 / 488 Weight 170 lb 147 lb 7.828 oz Microbiology Reports for the Last 24 Hours: Microbiology 11/11/21 13:05 Urine,Catheterized Urine Culture - Preliminary NO GROWTH AFTER 24 HOURS Narrative: Patient looks comfortable. O2 sat is 99%. Lungs are distant but clear without rales, rhonchi, wheezes. Heart has a regular rate and rhythm. Assessment and Plan (1) Acute respiratory failure Status: Acute Category: Medical Code(s): J96.00 - Acute respiratory failure, unspecified whether with hypoxia or hypercapnia (2) Lower resp. tract infection Status: Acute Category: Medical Code(s): J22 - Unspecified acute lower respiratory infection (3) Dementia Status: Acute Category: Medical Code(s): F03.90 - Unspecified dementia without behavioral disturbance (4) COPD (chronic obstructive pulmonary disease) Status: Acute Category: Medical Code(s): J44.9 - Chronic obstructive pulmonary disease, unspecified (5) Hypertension Status: Acute Category: Medical Code(s): I10 - Essential (primary) hypertension (6) COVID-19 Status: Acute Category: Medical Code(s): U07.1 - COVID-19 (7) Urinary tract infection Status: Suspected Category: Medical Code(s): N39.0 - Urinary tract infection, site not specified - Assessment and plan all Dx Assessment and Plan for all problems:: 1. Continue Remdesivir and dexamethasone 2. PT eval today. If patient is felt safe to return home plan will be for discharge tomorrow
[2021-11-13 08:00] VITALS: BP 113/64; PULSE 97; RESP 22; TEMP 36.2; O2SAT 96; O2SAT 97
--- NOTE | 2021-11-13 11:55 | HMH.PTEV ---
Physical Therapy Evaluation Rehab PT IP Evaluation Start: 11/12/21 17:58 Freq: ONCE Status: Active Protocol: Document 11/13/21 11:10 PHOAlanaCE (Rec: 11/13/21 11:55 PHORNE [id number]) Subjective/History History History 76 yowf adm to [facility] with COVID- 19 and general weakness. She presents with baseline confusion due to dementia. Subjective Subjective Pt with no c/o other than feeling tired this am. Rehab PT IP Eval Objective Appearance Patient Behavior Appropriate Patient Orientation Person Difficulty following instructions none Speech Pattern Clear Ambulation Patient Able to Ambulate Yes Ambulation Observation IP General Gait Pattern Observation Wide Based Gait,Shuffling Step Ambulation Distance (feet) 15 Ambulation Assistive Device None Ambulation Ability Contact Guard/Hand Hold Balance Ability to Arise Able, uses arms to help Sitting Balance Steady, safe Standing Balance Steady, wide stance Dynamic Sitting Balance Ability Good Dynamic Standing Balance Ability Fair Transfers Bed Transfer Ability Contact Guard/Hand Hold Chair Transfer Ability Contact Guard/Hand Hold Sit to Stand Bed Transfer Ability Contact Guard/Hand Hold Sit to Stand Chair Transfer Ability Contact Guard/Hand Hold ROM All Extremities PT ROM Status WFL MMT All Extremities PT MMT WFL Rehab PT IP prob,goals,plan Problems Date of Evaluation: 11/13/21 Discharge Plan PT Discharge Plan [facility] and is appropriate to return home with 24 hr assist once medically stable. G -code Required No Eval Complexity Eval Charge Codes 77371 - Moderate Complexity PHYSICIAN CERTIFICATION: I certify the specified therapy services for Nette Medina are required, authorized, and reviewed every 30 days.
[2021-11-13 12:00] VITALS: BP 108/75; PULSE 92; RESP 22; TEMP 37.1; O2SAT 99
--- NOTE | 2021-11-13 12:15 | DIET.NUTRFU ---
Patient continues on COVID isolation. Receiving ground cardiac diet, meal intake is poor, refused dinner and only 15% of breakfast. Labs on 11/13 hydration WNL. Plans to discharge tomorrow, lives with family. Will start ensure to better meet nutritional needs.
--- NOTE | 2021-11-13 13:35 | PC.NURSE ---
PT WOULD BENEFIT FROM EQUIPMENT IN THE HOME UPON DISCHARGE. SHE IS UNABLE TO REPOSITION HERSELF INDEPENDENTLY IN BED AND SHOULD HAVE A HOSPITAL BED IN THE HOME. SHE IS UNABLE TO TOLERATE WALKING R/T WEAKNESS AND MAY NEED A BED SIDE COMMODE FOR ELIMINATION IN THE HOME. SHE IS UNABLE TO AMBULATE INDEPENDENTLY AND SHOULD HAVE A WHEELCHAIR ON DISCHARGE.
--- NOTE | 2021-11-13 13:40 | SW/DCPLANNER ---
SET UP EQUPMENT FOR THIS PATIENT TO POSSIBLY DISCHARGE IN THE AM (SAT)... PATIENTS DAUGHTER REQUESTED PATIENT TO HAVE A HOSPITAL BED, BEDSIDE COMMODE AND WHEELCHAIR.. THIS WILL BE DELIVERED BY [facility] LATER IN THE AFTERNOON.. IF PATIENT NEEDS ANY HOME 02 THIS WILL BE SET UP AT TIME OF DISCHARGE..
[2021-11-13 15:21] VITALS: BP 125/63; PULSE 91; RESP 21; TEMP 36.7; O2SAT 100
[2021-11-13 20:00] VITALS: BP 140/72; PULSE 98; RESP 18; TEMP 37; O2SAT 100; O2SAT 96
[2021-11-13 23:49] VITALS: BP 116/65; PULSE 90; RESP 18; TEMP 36.8; O2SAT 98
[2021-11-14] VITALS (7 sets, daily range): BP systolic 113–134; BP diastolic 59–71; PULSE 76–102; RESP 16–21; TEMP 36.6–37.4; O2SAT 88–97; BMI 19.2
--- NOTE | 2021-11-14 03:31 | PC.NURSE ---
Patient has remained on 2LNC and has maintained a oxygen saturation above 95%. She has voiced no complaints to this RN. Patient remains alert to her name and birthday. Will continue to monitor. No acute events thus far in this RN's shift.
[2021-11-14 06:43] LABS: Chloride 106 mmol/L (98-107); Potassium 3.6 mmoL/L (3.5-5.1); Sodium 138 mmol/L (136-145)
[2021-11-14 06:46] LABS: Alanine Aminotransferase 22 U/L (12-78); Albumin Level 3.2 g/dl (3.5-5.0); Albumin/Globulin Ratio 1.2 (1.1-1.8); Alkaline Phosphatase 80 U/L (38-126); Anion Gap 5.6 mEq/L (5-15); Aspartate Amino Transferase 40 U/L (14-36); Bilirubin,Total 0.2 mg/dl (0.2-1.3); Blood Urea Nitrogen 17 mg/dl (7-17); Calcium 7.8 mg/dl (8.4-10.2); Carbon Dioxide 30 mmol/L (22.0-30.0); Creatinine Clearance Estimated 49 mL/min (50-200); Estimated Glomerular Filt Rate 70 ml/min (>60); GFR (African American) 85 ML/MIN (>60); Globulin 2.7 g/dL (1.3-3.2); Glucose 95 mg/dl (74-100); Total Protein,Serum 5.9 g/dl (6.3-8.2)
--- NOTE | 2021-11-14 07:57 | P.PN_ITS ---
Internal Medicine - PN: Errol *Date: 11/14/21 *Time: 07:57 Interval history: No acute events overnight. Patient reports she feels like hell . She reports poor quality sleep, poor appetite and lack of energy. Nursing staff confirms patient has not slept well. Patient has eaten very little breakfast this morning Exam Vital signs and Labs for Last 24 Hours: Temp Pulse Resp BP Pulse Ox 97.9 F 96 H 18 113/61 88 L 11/14/21 03:54 11/14/21 07:50 11/14/21 07:50 11/14/21 07:50 11/14/21 07:50 Laboratory Results - last 24 hr 11/14/21 06:03: Sodium 138, Potassium 3.6, Chloride 106, Carbon Dioxide 30, Ani on Gap 5.6, BUN 17, Creatinine 0.80, Estimated Creat Clear 49, Estimated GFR 70, Est GFR ( Amer) 85, Glucose 95, Calcium 7.8 L, Total Bilirubin 0.2, AST 40 H, ALT 22, Alkaline Phosphatase 80, Total Protein 5.9 L, Albumin 3.2 L, Globulin 2.7, Albumin/Globulin Ratio 1.2 I & O for Last 24 hours: Intake & Output 11/11/21 11/12/21 11/13/21 11/14/21 11:59 11:59 11:59 11:59 Intake Total 60 / 60 728 / 728 360 / 360 Output Total 250 / 250 Balance 60 / 60 728 / 728 110 / 110 Weight 170 lb 147 lb 7.828 oz 142 lb Microbiology Reports for the Last 24 Hours: Microbiology 11/11/21 13:05 Urine,Catheterized Urine Culture - Final NO GROWTH AFTER 48 HOURS 11/11/21 10:43 Blood Blood Culture - Preliminary NO GROWTH AFTER 48 HOURS 11/11/21 10:43 Blood Blood Culture - Preliminary NO GROWTH AFTER 48 HOURS Narrative: Patient looks comfortable. O2 sat is 88% on room air. Lungs have some increased rhonchi in the right midlung and right base this morning. Heart has a regular rate and rhythm. Abdomen is soft Assessment and Plan (1) Acute respiratory failure Status: Acute Category: Medical Code(s): J96.00 - Acute respiratory failure, unspecified whether with hypoxia or hypercapnia (2) Lower resp. tract infection Status: Acute Category: Medical Code(s): J22 - Unspecified acute lower respiratory infection (3) Dementia Status: Acute Category: Medical Code(s): F03.90 - Unspecified dementia without behavioral disturbance (4) COPD (chronic obstructive pulmonary disease) Status: Acute Category: Medical Code(s): J44.9 - Chronic obstructive pulmonary disease, unspecified (5) Hypertension Status: Acute Category: Medical Code(s): I10 - Essential (primary) hypertension (6) COVID-19 Status: Acute Category: Medical Code(s): U07.1 - COVID-19 (7) Urinary tract infection Status: Suspected Category: Medical Code(s): N39.0 - Urinary tract infection, site not specified - Assessment and plan all Dx Assessment and Plan for all problems:: 1. Continue Remdesivir and dexamethasone for Covid pneumonia with acute respiratory failure 2. Oxygen to keep sats greater than 90% 3. Patient's nightly hypnotic will be scheduled to allow for better quality sleep 4. Urine culture has no growth. Rocephin will be discontinued
[2021-11-15] VITALS (9 sets, daily range): BP systolic 89–148; BP diastolic 63–95; PULSE 88–106; RESP 16–18; TEMP 36.5–37.3; O2SAT 92–98; BMI 19.3
[2021-11-15 06:28] LABS: Basophils % 0.2 % (0.1-2.0); Eosinophils % 0.1 % (0.1-12.0); Hematocrit 39.9 % (37.0-47.0); Hemoglobin 12.3 g/dL (12.2-16.2); Lymphocytes # 0.9 K/mm3 (0.7-4.5); Lymphocytes % 16.2 % (10-50); Mean Corpuscular HGB Conc 30.8 g/dL (31.8-35.4); Mean Corpuscular Hemoglobin 30.7 pg (27.0-31.2); Mean Corpuscular Volume 99.5 fl (81-99); Mean Platelet Volume 8.7 fl (7.4-10.4); Monocytes # 0.6 K/mm3 (0.1-1.0); Monocytes % 10.7 % (1.7-9.3); Neutrophils # 4.2 K/mm3 (1.8-7.8); Neutrophils % 72.9 % (37.0-80.0); Platelet Count 243 K/mm3 (142-424); Red Blood Count 4.01 M/mm3 (4.20-5.40); Red Cell Distribution Width 12.9 % (11.5-17.5); White Blood Count 5.8 K/mm3 (4.8-10.8)
[2021-11-15 06:33] LABS: Chloride 105 mmol/L (98-107)
[2021-11-15 06:34] LABS: Potassium 3.8 mmoL/L (3.5-5.1); Sodium 137 mmol/L (136-145)
[2021-11-15 06:36] LABS: Alanine Aminotransferase 19 U/L (12-78); Aspartate Amino Transferase 34 U/L (14-36); Blood Urea Nitrogen 17 mg/dl (7-17); Creatinine Clearance Estimated 50 mL/min (50-200); Estimated Glomerular Filt Rate 82 ml/min (>60); GFR (African American) 99 ML/MIN (>60)
[2021-11-15 06:37] LABS: Albumin/Globulin Ratio 1.2 (1.1-1.8); Alkaline Phosphatase 70 U/L (38-126); Anion Gap 3.8 mEq/L (5-15); Bilirubin,Total 0.2 mg/dl (0.2-1.3); Calcium 7.6 mg/dl (8.4-10.2); Carbon Dioxide 32 mmol/L (22.0-30.0); Globulin 2.6 g/dL (1.3-3.2); Glucose 116 mg/dl (74-100); Total Protein,Serum 5.6 g/dl (6.3-8.2)
--- NOTE | 2021-11-15 07:50 | XR_ITS ---
PROCEDURE INFORMATION: Exam: XR Chest Exam date and time: 11/15/2021 7:50 AM Age: 76 years old Clinical indication: Cough and shortness of breath; Additional info: Cough, hypoxia, known covid TECHNIQUE: Imaging protocol: XR of the chest. Views: 1 view. COMPARISON: CR XR CHEST PORTABLE 11/11/2021 10:49 AM FINDINGS: Lungs: Emphysematous change , interstitial prominence, and trace left basilar airspace disease. Pleural spaces: No pleural effusion. Heart/Mediastinum: Cardiac silhouette upper limits of normal size. Bones/joints: Osteopenia, degenerative change, scoliosis. Soft tissues: Leftward rotation of the chest. IMPRESSION: Emphysematous change, interstitial prominence, and trace left basilar airspace disease.
--- NOTE | 2021-11-15 07:52 | HMH.ACPN2 ---
Internal Medicine - PN: Subj *Date: 11/15/21 *Time: 07:52 Interval history: No acute events over the last 24 hours. Patient continues to be hypoxic on room air but responds well to application of supplemental oxygen at 2 L/min. Patient this morning is only oriented to person. When reminded she is in the hospital she does not know why she is in the hospital. She reports feeling poorly. She has noted increased cough this morning. Exam Vital signs and Labs for Last 24 Hours: Temp Pulse Resp BP Pulse Ox 97.7 F 88 16 89/71 L 97 11/15/21 04:00 11/15/21 06:55 11/15/21 04:00 11/15/21 04:00 11/15/21 06:55 Laboratory Results - last 24 hr 11/15/21 05:43: Sodium 137, Potassium 3.8, Chloride 105, Carbon Dioxide 32 H, Anion Gap 3.8 L, BUN 17, Creatinine 0.70, Estimated Creat Clear 50, Estimated GFR 82, Est GFR ( Amer) 99, Glucose 116 H D, Calcium 7.6 L, Total Bilirubin 0.2, AST 34, ALT 19, Alkaline Phosphatase 70, Total Protein 5.6 L, Albumin 3.0 L, Globulin 2.6, Albumin/Globulin Ratio 1.2 11/15/21 05:43: WBC 5.8, RBC 4.01 L, Hgb 12.3, Hct 39.9, MCV 99.5 H, MCH 30.7, MCHC 30.8 L, RDW 12.9, Plt Count 243, MPV 8.7, Neut % (Auto) 72.9, Lymph % (Auto) 16.2, [place] % (Auto) 10.7 H, Eos % (Auto) 0.1, Baso % (Auto) 0.2, Neut # (Auto) 4.2, Lymph # (Auto) 0.9, [place] # (Auto) 0.6, Eos # (Auto) 0.0, Baso # (Auto) 0.0 I & O for Last 24 hours: Intake & Output 11/12/21 11/13/21 11/14/21 11/15/21 11:59 11:59 11:59 11:59 Intake Total 60 / 60 728 / 728 480 / 480 240 / 240 Output Total 250 / 250 Balance 60 / 60 728 / 728 230 / 230 240 / 240 Weight 147 lb 7.828 oz 142 lb 143 lb 3.2 oz Microbiology Reports for the Last 24 Hours: Microbiology 11/11/21 13:05 Urine,Catheterized Urine Culture - Final NO GROWTH AFTER 48 HOURS Narrative: Patient appears comfortable and in no respiratory distress. She has a loose cough on examination. Rhonchi are present in the right anterior upper lobe and right posterior midlung with expiratory wheezes in both lungs. Heart has a regular rate and rhythm. Abdomen is soft. Lower extremities are without edema Assessment and Plan (1) Pneumonia Status: Acute Category: Medical Code(s): J18.9 - Pneumonia, unspecified organism (2) Acute respiratory failure Status: Acute Category: Medical Code(s): J96.00 - Acute respiratory failure, unspecified whether with hypoxia or hypercapnia (3) Lower resp. tract infection Status: Acute Category: Medical Code(s): J22 - Unspecified acute lower respiratory infection (4) Dementia Status: Acute Category: Medical Code(s): F03.90 - Unspecified dementia without behavioral disturbance (5) COPD (chronic obstructive pulmonary disease) Status: Acute Category: Medical Code(s): J44.9 - Chronic obstructive pulmonary disease, unspecified (6) Hypertension Status: Acute Category: Medical Code(s): I10 - Essential (primary) hypertension (7) COVID-19 Status: Acute Category: Medical Code(s): U07.1 - COVID-19 (8) Urinary tract infection Status: Ruled-out Category: Medical Code(s): N39.0 - Urinary tract infection, site not specified - Assessment and plan all Dx Assessment and Plan for all problems:: 1. Clinically patient seems to be developing pneumonia now. Repeat chest x-ray today and I am going to start the patient on cefepime. MRSA screen will be performed. Continue aerosols 2. Patient's dementia complicates care and has interfered with some patient compliance in regards to her supplemental oxygen
--- NOTE | 2021-11-15 18:24 | PC.NURSE ---
20 IV G placed in RAC.
[2021-11-16] VITALS: BP 132/77; PULSE 92; RESP 24; TEMP 36.9; O2SAT 96
[2021-11-16 04:00] VITALS: BP 120/75; PULSE 95; RESP 18; TEMP 37; O2SAT 97
[2021-11-16 05:00] VITALS: BMI 19.3
[2021-11-16 06:30] VITALS: PULSE 85; PULSE 87; O2SAT 98
--- NOTE | 2021-11-16 06:59 | HMH.ACPN2 ---
Internal Medicine - PN: Subj *Date: 11/16/21 *Time: 06:59 Interval history: Patient became confused overnight and was frequently pulling out her IV as well as removing nasal cannula. Patient was placed in mittens. This morning she has no complaints. Memory remains poor. Exam Vital signs and Labs for Last 24 Hours: Temp Pulse Resp BP Pulse Ox 98.6 F 85 18 120/75 98 11/16/21 04:00 11/16/21 06:30 11/16/21 04:00 11/16/21 04:00 11/16/21 06:30 I & O for Last 24 hours: Intake & Output 11/13/21 11/14/21 11/15/21 11/16/21 11:59 11:59 11:59 11:59 Intake Total 728 / 728 480 / 480 300 / 300 240 / 240 Output Total 250 / 250 0 / 0 Balance 728 / 728 230 / 230 300 / 300 240 / 240 Weight 142 lb 143 lb 3.2 oz 142 lb 12.8 oz - Constitutional no acute distress - *Routine Respiratory Exam Present: distant breath sounds - *Routine Cardiovascular Exam Present: RRR Assessment and Plan (1) Pneumonia Status: Acute Category: Medical Code(s): J18.9 - Pneumonia, unspecified organism (2) Acute respiratory failure Status: Acute Category: Medical Code(s): J96.00 - Acute respiratory failure, unspecified whether with hypoxia or hypercapnia (3) Lower resp. tract infection Status: Acute Category: Medical Code(s): J22 - Unspecified acute lower respiratory infection (4) Dementia Status: Acute Category: Medical Code(s): F03.90 - Unspecified dementia without behavioral disturbance (5) COPD (chronic obstructive pulmonary disease) Status: Acute Category: Medical Code(s): J44.9 - Chronic obstructive pulmonary disease, unspecified (6) Hypertension Status: Acute Category: Medical Code(s): I10 - Essential (primary) hypertension (7) COVID-19 Status: Acute Category: Medical Code(s): U07.1 - COVID-19 (8) Urinary tract infection Status: Ruled-out Category: Medical Code(s): N39.0 - Urinary tract infection, site not specified - Assessment and plan all Dx Assessment and Plan for all problems:: 1. Patient can be discharged home today with continued supplemental oxygen. 2. Patient will continue steroids and antibiotics for her COPD exacerbation
--- NOTE | 2021-11-16 07:00 | HMH.DCSUM ---
General - General Admission date:: 11/11/21 Discharge date: 11/16/21 HPI HPI: 76 year old female present to ER via EMS with cough, chest congestion, and right hip pain. Eval in ther ER revealed hypoxian and positive covid19 test. Hip imaging unremarkable. Patient has been vaccinated with J&J with no booster. She has been a smoker for 60 years. No oxygen use at home. Patient is unclear on length of illness. Hospital Course Hospital Course: Patient was admitted. Continuous pulse oximetry was performed with sats remaining in the 90s unless patient removed her supplemental oxygen at which point sats would decrease to the high 80s. Patient was given Remdesivir and dexamethasone intravenously for 5 days. Patient's dementia did interfere with care to a mild degree as patient removed multiple IVs and had to be reinstructed on wearing her oxygen. Patient showed no signs of decline and was stable during hospitalization. She was discharged home on the Objective Vital signs: Temp Pulse Resp BP Pulse Ox 98.6 F 85 18 120/75 98 11/16/21 04:00 11/16/21 06:30 11/16/21 04:00 11/16/21 04:00 11/16/21 06:30 no acute distress - *Routine Respiratory Exam Present: distant breath sounds - *Routine Cardiovascular Exam Present: RRR - *Routine Abdominal Exam Present: soft, normoactive bowel sounds. Absent: tenderness Results Labs on day of discharge: Preliminary micro results at discharge 11/11/21 10:43 Blood Culture - Preliminary Blood NO GROWTH AFTER 48 HOURS 11/11/21 10:43 Blood Culture - Preliminary Blood NO GROWTH AFTER 48 HOURS DS: Diagnosis - Discharge Diagnosis (1) Pneumonia Status: Acute (2) Acute respiratory failure Status: Acute (3) Lower resp. tract infection Status: Acute (4) Dementia Status: Acute (5) COPD (chronic obstructive pulmonary disease) Status: Acute (6) Hypertension Status: Acute (7) COVID-19 Status: Acute (8) Urinary tract infection Status: Ruled-out Discharge Plan - Patient Discharge Instructions ACTIVITY: Continue current activity DIET: continue same diet Patient Instructions: Pneumonia-Adult, DI for Respiratory Failure, DI for COVID-19 (Suspected or Confirmed ), Nutrition and Hydration: [employer] in the Fight Against COVID-19 - Follow up Plan Disposition: Home, Self-Care Condition at discharge:: Stable Home Medications: Home Medications Medication Instructions Recorded Confirmed Type lisinopriL [Lisinopril 10mg Tab] 10 mg PO DAILY 11/02/17 11/11/21 History Doxepin HCl [Sinequan 25mg capsule] 25 mg PO HS 11/11/21 11/11/21 History Memantine HCl [Memantine 10mg 10 mg PO BID 11/11/21 11/11/21 History Tablet] Temazepam [Restoril 30mg Capsule] 30 mg PO HSP PRN 11/11/21 11/11/21 History Cefdinir [Omnicef 300mg Capsule] 300 mg PO BID #10 cap 11/16/21 Rx predniSONE [Prednisone 20mg 20 mg PO DAILY #5 tab 11/16/21 Rx Tab] Prescriptions/Medication Reconciliation: New predniSONE [Prednisone 20mg Tab] 20 mg PO DAILY #5 tab Cefdinir [Omnicef 300mg Capsule] 300 mg PO BID #10 cap Continued lisinopriL [Lisinopril 10mg Tab] 10 mg PO DAILY Memantine HCl [Memantine 10mg Tablet] 10 mg PO BID Temazepam [Restoril 30mg Capsule] 30 mg PO HSP PRN PRN Reason: Insomnia Doxepin HCl [Sinequan 25mg capsule] 25 mg PO HS - Problem Reconciliation Problems Reviewed?: Yes
[2021-11-16 07:27] LABS: Chloride 105 mmol/L (98-107); Potassium 3.2 mmoL/L (3.5-5.1); Sodium 137 mmol/L (136-145)
[2021-11-16 07:30] LABS: Alanine Aminotransferase 19 U/L (12-78); Albumin Level 2.9 g/dl (3.5-5.0); Albumin/Globulin Ratio 1.1 (1.1-1.8); Alkaline Phosphatase 54 U/L (38-126); Anion Gap 2.2 mEq/L (5-15); Aspartate Amino Transferase 38 U/L (14-36); Bilirubin,Total 0.4 mg/dl (0.2-1.3); Blood Urea Nitrogen 16 mg/dl (7-17); Carbon Dioxide 33 mmol/L (22.0-30.0); Creatinine Clearance Estimated 50 mL/min (50-200); Estimated Glomerular Filt Rate 82 ml/min (>60); GFR (African American) 99 ML/MIN (>60); Globulin 2.6 g/dL (1.3-3.2); Total Protein,Serum 5.5 g/dl (6.3-8.2)
[2021-11-16 07:31] LABS: Calcium 7.6 mg/dl (8.4-10.2); Glucose 85 mg/dl (74-100)
[2021-11-16 08:00] VITALS: BP 126/65; PULSE 68; RESP 16; TEMP 37.2; O2SAT 85; O2SAT 97
--- NOTE | 2021-11-16 10:19 | SW/DCPLANNER ---
Patient info/order has been faxed to [facility] for home O2 + portable tank. Cecilia Greene has stated tank will be delivered to [facility] this AM. The plan is for this patient to discharge home today.
--- NOTE | 2021-11-16 11:22 | PC.NURSE ---
Gave discharge instructions to Geni Reynaga d/t pt being confused. Pt's daughter will be here to get her mother in two hours. This info was passed on to Silvia, weigh and charge worker.
[2021-11-16 11:40] VITALS: PULSE 91; PULSE 97; RESP 16; O2SAT 98
[2021-11-16 12:00] VITALS: BP 139/80; PULSE 100; RESP 18; TEMP 36.7; O2SAT 94
--- NOTE | 2021-11-16 12:44 | HMH.PHAINT ---
Pt has dementia, unable to understand, and no family member in the room. The nurse said she called the [employer] and informed them of the new meds
== END 2021-11-16 14:26 | disposition home or self-care (01) | DRG 177 ==
LOC: ER 12:40 → 2ND 12:53 → ICU 11-12 06:01 → 2ND 11-15 19:04
PROVIDERS: Admitting Provider Family Medicine; Emergency Provider Emergency Medicine; PCP Family Medicine; Visit Provider Family Medicine
DX: U07.1 COVID-19 (principal); J96.00 Acute respiratory failure, unspecified whether with hypoxia or hypercapnia; J18.9 Pneumonia, unspecified organism; J96.01 Acute respiratory failure with hypoxia; N39.0 Urinary tract infection, site not specified; J44.0 Chronic obstructive pulmonary disease with (acute) lower respiratory infection; F03.90 Unspecified dementia, unspecified severity, without behavioral disturbance, psychotic disturbance, mood disturbance, and anxiety; J44.9 Chronic obstructive pulmonary disease, unspecified; I10 Essential (primary) hypertension; F17.210 Nicotine dependence, cigarettes, uncomplicated
CPT/HCPCS: 36415; 71045; 73502; 80053; 81001; 83605; 85025; 86140; 87040; 87081; 87086; 93005; 94640; 94761; 96374; 97162; 99281; C9803; J0456; J0696; U0003; U0005

== ENCOUNTER → 2022-04-06 13:09 | Outpatient (POV) | payer MEDICARE, SELFPAY | PROVIDERS: Visit Provider Dermatology | DX: Z00.00 Encounter for general adult medical examination without abnormal findings (principal) ==

== ENCOUNTER 2022-05-24 11:10 | Emergency (ER) | payer MEDICARE, SELFPAY ==
--- NOTE | 2022-05-24 10:26 | ECG_ITS ---
APPROVED REPORT Exam: Resting ECG HR:84 bpm ECG Measurements Heart Rate 84 AXES MT 173 P 89 QRSd 93 QRS -47 QT 394 T 91 QTc 435 Conclusion SINUS RHYTHM LEFT AXIS DEVIATION [QRS AXIS < -30] ABNORMAL QRS-T ANGLE [QRS-T AXIS DIFFERENCE > 60] ABNORMAL ECG UNCONFIRMED REPORT Electronically signed by : Tommy Martinez MD 05/25/2022 21:27:15
[2022-05-24 10:30] VITALS: BP 149/103; PULSE 91; RESP 16; TEMP 37.5; O2SAT 98; BMI 26.6
[2022-05-24 10:31] VITALS: BMI 26.5
--- NOTE | 2022-05-24 10:31 | XR_ITS ---
FINAL REPORT CLINICAL HISTORY: weakness COMPARISON: November 15, 2021 FINDINGS: The heart size is normal. The mediastinum is normal. There is a little bit of scarring at the lung bases. There are no pleural effusions. There is no pneumothorax. There is 25 degrees of thoracic scoliosis convex to the right. IMPRESSION: Minimal scarring at the lung bases. Reviewed, Interpreted and Dictated by Jono Pandey MD Transcribed by Cecilia Pizarro Authenticated and [facility]
--- NOTE | 2022-05-24 10:32 | CT_ITS ---
FINAL REPORT TECHNIQUE: Axial CT images were performed through the head. Coronal reformatted images were submitted. This study was performed with techniques to keep radiation doses as low as reasonably achievable (ALARA). Individualized dose reduction techniques using automated exposure control or adjustment of mA and/or kV according to the patient's size were employed. CLINICAL HISTORY: confused, r/o stroke FINDINGS: There is a large, multilocular, intraparenchymal hematoma in the right temporal lobe measuring 5.8 x 4.8 cm in AP and transverse dimension. There is extensive surrounding vasogenic edema. Mild midline shift is seen to the left of 4 mm. The ventricles are normal in size. IMPRESSION: Large, intraparenchymal hematoma in the right temporal lobe with extensive vasogenic edema and midline shift. These findings were discussed with the emergency room physician at 10:56 a.m.. Reviewed, Interpreted and Dictated by Jono Pandey MD Transcribed by Gina Amor Authenticated and [facility]
[2022-05-24 10:35] VITALS: BP 145/96; PULSE 88; O2SAT 96
--- NOTE | 2022-05-24 10:38 | PC.NURSE ---
pt to ct via stretcher with RAD techs times 2
[2022-05-24 10:48] LABS: Coronavirus 19, PCR Not Detected (NotDetected); Influenza A, PCR Not Detected (NotDetected); Influenza B, PCR Not Detected (NotDetected); Microscopic, Urine URINE MICROSCOPIC (MICROSCOPIC)
[2022-05-24 10:52] LABS: Appearance,Urine SL CLOUDY (Clear); Bilirubin,Urine Negative (Negative); Blood, Urine Negative (Negative); Color,Urine YELLOW (Yellow); Glucose,Urine (UA) Negative (Negative); Ketones,Urine Negative (Negative); Leukocyte Esterase,Urine Negative (Negative); Nitrate,Urine Negative (Negative); Protein,Urine Negative (Negative); Specific Gravity, Urine 1.015 (1.005-1.030); Urobilinogen,Urine 0.2 EU/dl (0.2)
[2022-05-24 10:53] LABS: Basophils # 0.1 K/mm3 (0-0.2); Basophils % 0.8 % (0.1-2.0); Eosinophils # 0.1 K/mm3 (0.0-0.4); Hematocrit 39.5 % (37.0-47.0); Hemoglobin 11.7 g/dL (12.2-16.2); Mean Corpuscular HGB Conc 29.7 g/dL (31.8-35.4); Mean Corpuscular Hemoglobin 30.7 pg (27.0-31.2); Mean Corpuscular Volume 103.2 fl (81-99); Mean Platelet Volume 9.2 fl (7.4-10.4); Monocytes # 0.3 K/mm3 (0.1-1.0); Neutrophils # 6.5 K/mm3 (1.8-7.8); Neutrophils % 82.1 % (37.0-80.0); Platelet Count 264 K/mm3 (142-424); Red Blood Count 3.83 M/mm3 (4.20-5.40); Red Cell Distribution Width 12.8 % (11.5-17.5); White Blood Count 7.9 K/mm3 (4.8-10.8)
--- NOTE | 2022-05-24 10:53 | PC.NURSE ---
[facility] reports her scan looks like a bleed. Dr. Gilliam has been notified.
--- NOTE | 2022-05-24 10:54 | PC.NURSE ---
Radiologist is speaking with Dr. Muir at this time regarding CT scan
[2022-05-24 10:56] LABS: Alanine Aminotransferase 11 U/L (12-78); Albumin Level 3.7 g/dl (3.5-5.0); Albumin/Globulin Ratio 1.4 (1.1-1.8); Alkaline Phosphatase 113 U/L (38-126); Anion Gap 6.4 mEq/L (5-15); Aspartate Amino Transferase 38 U/L (14-36); Blood Urea Nitrogen 12 mg/dl (7-17); Calcium 8.7 mg/dl (8.4-10.2); Carbon Dioxide 36 mmol/L (22.0-30.0); Chloride 98 mmol/L (98-107); Creatinine Clearance Estimated 52 mL/min (50-200); Estimated Glomerular Filt Rate 97 ml/min (>60); GFR (African American) 118 ML/MIN (>60); Globulin 2.6 g/dL (1.3-3.2); Glucose 110 mg/dl (74-100); Lactic Acid 1.1 mmol/L (0.7-2.1); Potassium 4.4 mmoL/L (3.5-5.1); Sodium 136 mmol/L (136-145); Total Protein,Serum 6.3 g/dl (6.3-8.2)
[2022-05-24 10:57] LABS: Bilirubin,Total 0.1 mg/dl (0.2-1.3)
--- NOTE | 2022-05-24 10:57 | PC.NURSE ---
Contacting [facility] for pt transfer
--- NOTE | 2022-05-24 10:57 | PC.NURSE ---
spoke with pt daughter ava at this time, states she is on her way to the hospital at this time, informed her ER MD was wanting to speak with her.
[2022-05-24 10:59] LABS: POC Glucose,Bedside 117 (70-110)
--- NOTE | 2022-05-24 11:00 | PC.NURSE ---
LALI PHILLIP at for patient eval
--- NOTE | 2022-05-24 11:01 | [facility].EDWEAK ---
ED Disposition Clinical Impression: Intracranial hemorrhage Disposition: Xfer Short-Term Hosp Condition on Discharge: Critical Referrals: Provider,Referral, MD [Primary Care Provider] - Forms: Transfer Record - ED - Critical Care Critical Care Time: Yes Attestation: On , the high probability of a clinically significant, sudden or life threatening deterioration of the following system(s) required my full and direct attention, intervention and personal management. The time I documented below is in addition to time spent performing reported procedures but includes the following listed in this critical care notation. Vital system(s) involved:: Central Nervous System My critical care processes included: Assessment & monitoring of V/S, Initial and Re-exams, Data Review/Interpretation, Coordinating Care, Medication Orders and management, Documentation Medical Decision Making - Medical Records Medical records reviewed: Yes: I reviewed the patient's medical records. - Luke Inquiry Pt receiving controlled substance: No Vital Signs: 05/24/22 10:30 05/24/22 10:35 05/24/22 11:13 Temperature 99.5 F Temperature Source Oral Pulse Rate 88 89 Pulse Rate [Left Radial] 91 H Respiratory Rate 16 Blood Pressure 145/96 H 175/143 H Blood Pressure [Right Arm] 149/103 H Blood Pressure Mean 150 Blood Pressure Mean [Right Arm] 118 Blood Pressure Source Automatic Cuff Blood Pressure Source [Right Arm] Automatic Cuff Blood Pressure Position Sitting Blood Pressure Position [Right Arm] Sitting 02 Sat by Pulse Oximetry 98 96 99 Oxygen Delivery Method Room Air Nasal Cannula Nasal Cannula Oxygen Flow Rate (LPM) 2 2 05/24/22 11:20 05/24/22 11:26 05/24/22 11:44 Temperature 99.5 F Temperature Source Oral Pulse Rate 90 91 H 91 H Pulse Rate [Left Radial] Respiratory Rate 18 Blood Pressure 170/136 H 154/119 H 154/119 H Blood Pressure [Right Arm] Blood Pressure Mean 147 130 Blood Pressure Mean [Right Arm] Blood Pressure Source Automatic Cuff Blood Pressure Source [Right Arm] Blood Pressure Position Sitting Blood Pressure Position [Right Arm] 02 Sat by Pulse Oximetry 99 99 Oxygen Delivery Method Nasal Cannula Nasal Cannula Oxygen Flow Rate (LPM) 2 2 - Lab Data Lab Results 05/24/22 10:35: WBC 7.9, RBC 3.83 L, Hgb 11.7 L, Hct 39.5, MCV 103.2 H, MCH 30.7, MCHC 29.7 L, RDW 12.8, Plt Count 264, MPV 9.2, Neut % (Auto) 82.1 H, Lymph % (Auto) 12.0, [place] % (Auto) 4.0, Eos % (Auto) 1.0, Baso % (Auto) 0.8, Neut # (Auto) 6.5, Lymph # (Auto) 1.0, [place] # (Auto) 0.3, Eos # (Auto) 0.1, Baso # (Auto) 0.1 05/24/22 10:35: Sodium 136, Potassium 4.4, Chloride 98, Carbon Dioxide 36 H, Anion Gap 6.4, BUN 12, Creatinine 0.60, Estimated Creat Clear 52, Estimated GFR 97, Est GFR ( Amer) 118, Glucose 110 H, Calcium 8.7, Total Bilirubin 0.1 L, AST 38 H, ALT 11 L, Alkaline Phosphatase 113, Troponin I < 0.01, Total Protein 6.3, Albumin 3.7, Globulin 2.6, Albumin/Globulin Ratio 1.4 05/24/22 10:35: Lactate 1.1 05/24/22 10:35: SARS-CoV-2 (PCR) Not detected, Influenza A Untype (PCR) Not detected, Influenza Type B (PCR) Not detected 05/24/22 10:35: Urine Color Yellow, Urine Appearance Sl cloudy, Urine pH 8.0, Ur Specific [place] 1.015, Urine Protein Negative, Urine Glucose (UA) Negative, Urine Ketones Negative, Urine Blood Negative, Urine Nitrate Negative, Urine Bilirubin Negative, Urine Urobilinogen 0.2, Ur Leukocyte Esterase Negative, Urine RBC None, Urine WBC Occasional, Ur Squamous Epith Cells Occasional, Amorphous Sediment Trace, Urine Bacteria Trace 05/24/22 10:52: POC Glucose 117 H Result diagrams: 05/24/22 10:35 05/24/22 10:35 Orders (Tests/Meds): ED MEDICATIONS Discontinued Medications Generic Name Dose Route Start Last Admin Trade Name Freq PRN Reason Stop Dose Admin Hydralazine HCl 10 mg 05/24/22 11:10 05/24/22 11:16 Hydralazine 20mg/Ml Vial IV 05/24/22 11:11 10 mg ONCE ONE A
[2022-05-24 11:09] LABS: Troponin I < 0.01 ng/ml (0.00-0.034)
--- NOTE | 2022-05-24 11:09 | PC.NURSE ---
LALI PHILLIP speaking with Neurosurgeon at at this time
--- NOTE | 2022-05-24 11:11 | PC.NURSE ---
accepted to ER by
[2022-05-24 11:13] VITALS: BP 175/143; PULSE 89; O2SAT 99
[2022-05-24 11:15] LABS: Amorphous Sediment,Urine Trace /lpf; Bacteria,Urine Trace /lpf; Squamous Epithelial Cell,Urine Occasional #/hpf (0-5); WBC,Urine Occasional #/hpf (0-3)
--- NOTE | 2022-05-24 11:15 | PC.NURSE ---
Notified [facility] of patient transfer, spoke with Reji. Reports they were headed up
--- NOTE | 2022-05-24 11:19 | PC.NURSE ---
report called to Lynette at
[2022-05-24 11:20] VITALS: BP 170/136; PULSE 90; O2SAT 99
--- NOTE | 2022-05-24 11:21 | PC.NURSE ---
ER at speaking with family regarding update on POC/results
--- NOTE | 2022-05-24 11:22 | PC.NURSE ---
at this time pt is able to identify herself but unable to states where she is or what her birthday is. [place] at bs
--- NOTE | 2022-05-24 11:23 | PC.NURSE ---
family at bs, update poc by
[2022-05-24 11:26] VITALS: BP 154/119; PULSE 91; O2SAT 99
[2022-05-24 11:44] VITALS: BP 154/119; PULSE 91; RESP 18; TEMP 37.5; O2SAT 99
--- NOTE | 2022-05-24 11:44 | PC.NURSE ---
[facility] taking pt per ambulance
== END 2022-05-24 11:45 | disposition short-term general hospital (02) ==
PROVIDERS: Emergency Provider Emergency Medicine
DX: R53.1 Weakness (principal); R47.01 Aphasia; R53.81 Other malaise; Z20.822 Contact with and (suspected) exposure to COVID-19; I10 Essential (primary) hypertension; J44.9 Chronic obstructive pulmonary disease, unspecified; F03.90 Unspecified dementia, unspecified severity, without behavioral disturbance, psychotic disturbance, mood disturbance, and anxiety; F17.210 Nicotine dependence, cigarettes, uncomplicated; Z79.52 Long term (current) use of systemic steroids; Z79.899 Other long term (current) drug therapy
CPT/HCPCS: 51702; 70450; 71045; 80053; 81001; 82962; 83605; 84484; 85025; 87040; 87077; 87186; 93005; 96374; 96376; 99285; C9803; U0003; U0005

== ENCOUNTER → 2022-07-26 12:03 | Outpatient (REF) | payer OTHER, SELFPAY ==
[2022-07-26 12:10] LABS: Microscopic, Urine URINE MICROSCOPIC (MICROSCOPIC)
[2022-07-26 12:42] LABS: Appearance,Urine TURBID (Clear); Bilirubin,Urine Negative (Negative); Blood, Urine 2+ (Negative); Color,Urine DK YELLOW (Yellow); Glucose,Urine (UA) Negative (Negative); Ketones,Urine TRACE (Negative); Leukocyte Esterase,Urine 2+ (Negative); Nitrate,Urine POSITIVE (Negative); Protein,Urine 1+ (Negative); Specific Gravity, Urine >= 1.030 (1.005-1.030); Urobilinogen,Urine 0.2 EU/dl (0.2)
[2022-07-26 13:29] LABS: Bacteria,Urine 2+ /lpf; WBC,Urine 20-50 #/hpf (0-3)
== END ==
LOC: LAB.DROPOF 12:03
PROVIDERS: Visit Provider Family Medicine Hospice and Palliative Medicine
DX: I63.50 Cerebral infarction due to unspecified occlusion or stenosis of unspecified cerebral artery (principal); N39.0 Urinary tract infection, site not specified; B96.89 Other specified bacterial agents as the cause of diseases classified elsewhere
CPT/HCPCS: 81001; 87086; 87088; 87186